=== PATIENT | male | born 1955 | race Caucasian/White ===

== ENCOUNTER 2017-07-07 09:32 | Outpatient (CLI) | payer BC ==
--- NOTE | 2017-07-07 10:47 | RAD ---
LEFT HIP 2 VIEWS: HISTORY: Left hip pain. FINDINGS: There is severe joint space narrowing, osteophytosis, and subchondral sclerosis. Femoral head contou r is maintained. No acute fracture, dislocation, or aggressive osseous erosions. IMPRESSION: Prominent osteoarthritis left hip. POS: [facility]
--- NOTE | 2017-07-07 11:09 | RAD ---
THREE VIEWS SACROILIAC JOINTS: COMPARISON: None. HISTORY: Left hip pain for 2 years. FINDINGS: Three views of the bilateral sacroiliac joints were performed. No significant degenerative change is seen surrounding either sacroiliac joint. No fusion of sacroiliac joints is seen. There are severe degenerative changes in the left hip. Moderate degenerative changes are seen in the right hip. IMPRESSION: 1. Moderate right and severe left hip osteoarthritis. 2. No significant sacroiliac abnormality. POS: [facility]
== END 2017-07-07 09:33 | disposition home or self-care (01) ==
LOC: TBSIIMAG 09:32
PROVIDERS: ATTEND Neurological Surgery
DX: M25.552 Pain in left hip (principal); M54.5 Low back pain; M16.12 Unilateral primary osteoarthritis, left hip
CPT/HCPCS: 72202